=== PATIENT | female | born 1975 | race Caucasian/White ===

== ENCOUNTER 2017-12-16 01:49 | Emergency (ER) | payer MEDICAID ==
[2017-12-16] MEDS: ALBUTEROL 0.083% (NEB) 2.5 MG/3 ML AMP NEB (05:05)
[2017-12-16] MEDS: IPRATROPIUM (NEB) 0.5 MG/2.5 ML AMP NEB (05:05)
== END 2017-12-16 05:51 | disposition home or self-care (01) ==
LOC: FTE 01:49
DX: J20.9 Acute bronchitis, unspecified (principal); F17.210 Nicotine dependence, cigarettes, uncomplicated
CPT/HCPCS: 71045; 94664; 99284-25

== ENCOUNTER 2019-02-04 07:37 | Emergency (ER) | payer SELFPAY, MEDICAID ==
[2019-02-04 08:07] LABS: URINE BLOOD (Dip) POC Trace-intact (NEGATIVE); URINE GLUCOSE (Dip) POC Negative (NEGATIVE); URINE KETONES (Dip) POC Negative (NEGATIVE); URINE LEUKOCYTE EST (Dip) POC Negative (NEGATIVE); URINE NITRITE (Dip) POC Negative (NEGATIVE); URINE TOTAL PROTEIN POC Negative (NEGATIVE)
[2019-02-04] MEDS: KETOROLAC 30 MG INJ IM (08:14)
[2019-02-04] MEDS: HYDROCODONE/APAP (5/325) TAB PO (08:15)
== END 2019-02-04 08:29 | disposition home or self-care (01) ==
LOC: FTE 08:29
DX: M54.9 Dorsalgia, unspecified (principal); F17.210 Nicotine dependence, cigarettes, uncomplicated
CPT/HCPCS: 81003; 81025; 96372; 99284-25